=== PATIENT | female | born 1945 | race Caucasian/White ===

== ENCOUNTER 2024-05-15 09:52 | Outpatient (CLI) | payer MEDICARE, SELFPAY ==
--- OUTSIDE RECORDS SUMMARY | 2024-05-15 09:59 | XMS_ITS ---
Author Organization Unknown Patient Care team information Name Category Status Period Participants - - Proposed period not known -
== END 2024-05-15 09:53 | disposition home or self-care (01) ==
LOC: INJ CL 09:56
PROVIDERS: PCP Nurse Practitioner Family; Visit Provider Family Medicine
DX: M54.16 Radiculopathy, lumbar region (principal); M51.360 Other intervertebral disc degeneration, lumbar region with discogenic back pain only
CPT/HCPCS: 64483; 64484; J1100; Q9966